=== PATIENT | female | born 1985 | race Two or more races ===

== ENCOUNTER 2017-09-30 19:49 | Emergency (ER) | payer SELFPAY ==
[~2017-09-30] VITALS: Ht 162.6 cm; Wt 64.0 kg
[~2017-09-30 19:49] MED LIST: KETO10TA PO; NICO-486 TD; OMEP-110 PO; ONDA4TAB13 PO; SUCR1ORA5 PO
[2017-09-30 19:53] VITALS: BP 108/60
[2017-09-30] MEDS ORDERED: FAMOTIDINE 20 MG/2 ML IVP ONE (20:00)
[2017-09-30] MEDS ORDERED: SODIUM CHLORIDE FLUSH 10ML SYR IVF ONE (20:00)
[2017-09-30] MEDS ORDERED: PANTOPRAZOLE 40 MG IV IVPush ONE (20:00)
[2017-09-30] MEDS ORDERED: PROCHLORPERAZINE 5 MG/ML, 2ML IVPush ONE (20:00)
[2017-09-30 20:22] LABS: BASOPHILS # (AUTO) 0.04 x10^3/uL (0-0.1); BASOPHILS % (AUTO) 1 % (0-1); EOSINOPHILS # (AUTO) 0.06 x10^3/uL (0-0.4); EOSINOPHILS % (AUTO) 1 % (1-7); LYMPHOCYTES # (AUTO) 2.77 x10^3/uL (1-3.4); LYMPHOCYTES % (AUTO) 46 % (22-44); MD NO; MEAN CORPUSCULAR HEMOGLOBIN 35.4 pg (27.0-34.8); MEAN CORPUSCULAR HGB CONC 34.2 g/dL (32.4-35.8); MEAN CORPUSCULAR VOLUME 103.7 fL (80-100); MEAN PLATELET VOLUME 7.7 fL (7.4-10.4); MONOCYTES # (AUTO) 0.56 x10^3/uL (0.2-0.8); MONOCYTES % (AUTO) 9 % (2-9); NEUTROPHILS # (AUTO) 2.66 x10^3/uL (1.8-6.8); NEUTROPHILS % (AUTO) 44 % (42-75); PLATELET COUNT 328 x10^3/uL (130-400); RED BLOOD COUNT 4.47 x10^6/uL (3.82-5.3); RED CELL DISTRIBUTION WIDTH 14.6 % (9.6-15.2)
[2017-09-30 20:25] LABS: CHLORIDE 110 mmol/L (98-107)
[2017-09-30 20:32] LABS: ALANINE AMINOTRANSFERASE 134 U/L (12-78); ALBUMIN 4.4 g/dL (3.4-5.0); ANION GAP 10 mmol/L (5-15); CALCIUM 9.3 mg/dL (8.5-10.1); CREATININE 0.77 mg/dL (0.55-1.02)
[2017-09-30 20:52] LABS: ALKALINE PHOSPHATASE 82 U/L (45-117); BILIRUBIN,TOTAL 0.5 mg/dL (0.2-1.0); TOTAL PROTEIN 8.7 g/dL (6.4-8.2)
== END 2017-09-30 21:02 | disposition left against medical advice (07) ==
LOC: ED 20:30
DX: R10.13 Epigastric pain (principal); R10.12 Left upper quadrant pain; G89.29 Other chronic pain; Z72.9 Problem related to lifestyle, unspecified; F10.20 Alcohol dependence, uncomplicated
CPT/HCPCS: 36415; 80053; 83690; 84703; 85025; 93005; 99285

== ENCOUNTER 2017-10-04 09:04 | Emergency (ER) | payer OTHER ==
[~2017-10-04] VITALS: Ht 162.6 cm; Wt 59.6 kg
[2017-10-04 09:10] VITALS: BP 115/82
[2017-10-04 10:01] LABS: BASOPHILS # (AUTO) 0.03 x10^3/uL (0-0.1); BASOPHILS % (AUTO) 1 % (0-1); EOSINOPHILS # (AUTO) 0.09 x10^3/uL (0-0.4); EOSINOPHILS % (AUTO) 2 % (1-7); LYMPHOCYTES # (AUTO) 1.85 x10^3/uL (1-3.4); LYMPHOCYTES % (AUTO) 36 % (22-44); MD NO; MEAN CORPUSCULAR HEMOGLOBIN 35.1 pg (27.0-34.8); MEAN CORPUSCULAR HGB CONC 34.3 g/dL (32.4-35.8); MEAN CORPUSCULAR VOLUME 102.5 fL (80-100); MEAN PLATELET VOLUME 7.9 fL (7.4-10.4); MONOCYTES # (AUTO) 0.45 x10^3/uL (0.2-0.8); MONOCYTES % (AUTO) 9 % (2-9); NEUTROPHILS # (AUTO) 2.65 x10^3/uL (1.8-6.8); NEUTROPHILS % (AUTO) 52 % (42-75); PLATELET COUNT 255 x10^3/uL (130-400); RED BLOOD COUNT 4.39 x10^6/uL (3.82-5.3); RED CELL DISTRIBUTION WIDTH 14.4 % (9.6-15.2)
[2017-10-04 10:04] LABS: ANION GAP 8 mmol/L (5-15); CALCIUM 9.1 mg/dL (8.5-10.1); CHLORIDE 109 mmol/L (98-107); CREATININE 0.67 mg/dL (0.55-1.02)
[2017-10-04 10:05] LABS: ALBUMIN 4.1 g/dL (3.4-5.0)
[2017-10-04] MEDS ORDERED: SODIUM CHLORIDE 0.9% 1,000 ML IV ONE (11:56)
[2017-10-04] MEDS ORDERED: LORazepam 2 MG/ML, 1ML ONE (11:57)
[2017-10-04] MEDS ORDERED: ONDANSETRON 2MG/ML, 2ML ONE (11:57)
[2017-10-04] MEDS ORDERED: ONDANSETRON 2MG/ML, 2ML IM ONE (12:00)
[2017-10-04] MEDS ORDERED: SODIUM CHLORIDE FLUSH 10ML SYR IVF ONE (12:00)
[2017-10-04] MEDS ORDERED: LORazepam 2 MG/ML, 1ML IVPush PRN (12:00)
[2017-10-04] MEDS ORDERED: SODIUM CHLORIDE 0.9% 1,000ML IVBOLUS ONE (12:00)
== END 2017-10-04 12:16 | disposition left against medical advice (07) ==
LOC: ED 12:10
DX: F10.121 Alcohol abuse with intoxication delirium (principal); F17.200 Nicotine dependence, unspecified, uncomplicated
CPT/HCPCS: 36415; 80048; 82040; 84703; 85025; 99284

== ENCOUNTER 2018-07-21 18:05 | Emergency (ER) | payer SELFPAY ==
[~2018-07-21] VITALS: Ht 162.6 cm; Wt 64.2 kg
[2018-07-21 18:22] VITALS: BP 113/77
== END 2018-07-21 19:05 | disposition home or self-care (01) ==
LOC: ED 18:40
DX: F41.9 Anxiety disorder, unspecified (principal); Z76.0 Encounter for issue of repeat prescription
CPT/HCPCS: 99283